=== PATIENT | male | born 1955 | race Caucasian/White ===

== ENCOUNTER 2019-04-03 09:15 | Emergency (ER) | payer MEDICARE, MEDICAID ==
[~2019-04-03] VITALS: Ht 175.3 cm; Wt 68.0 kg
[2019-04-03] MEDS ORDERED: HYDROCHLOROTHIA25 M2 PO (09:50)
[2019-04-03] MEDS ORDERED: NORVASC 2.5 MG2.5 M1 PO (09:50)
[2019-04-03 10:13] LABS: ABSOLUTE BASOPHILS 0.1 thou/uL (0.0-0.2); ABSOLUTE EOSINOPHILS 0.3 thou/uL (0.0-0.7); ABSOLUTE LYMPHOCYTES 0.8 thou/uL (0.8-5.3); ABSOLUTE MONOCYTES 0.4 thou/uL (0.0-1.2); ABSOLUTE NEUTROPHILS 3.3 thou/uL (1.6-8.1); BASOPHILS 1.5 %; HEMATOCRIT 27.5 % (42.0-52.0); HEMOGLOBIN 9.4 gm/dL (14.0-18.0); LYMPHOCYTES 15.5 %; MCH 32.1 pg (26.0-34.0); MCHC 34.3 g/dL (28.0-37.0); MCV 93.6 fL (80.0-100.0); MONOCYTES 8.7 %; MPV 7.5 fl. (7.2-11.1); NUCLEATED RBCS 0 /100WBC; PLATELET COUNT* 147 thou/uL (150-400); POLYS 67.3 %; RBC 2.94 mil/uL (4.50-6.00); RDW-CV 15.5 % (10.5-14.5); WBC 4.9 thou/uL (4.0-11.0)
[2019-04-03 10:26] LABS: POTASSIUM 4.2 mmol/L (3.5-5.1)
[2019-04-03 10:32] LABS: ALBUMIN 3.5 g/dL (3.4-5.0); TOTAL BILIRUBIN 0.6 mg/dL (<0.1-1.0); TOTAL PROTEIN 7.1 g/dL (6.4-8.2)
[2019-04-03 11:47] VITALS: BP 158/87
== END 2019-04-03 11:48 | disposition home or self-care (01) ==
LOC: M.ERS 09:15
PROVIDERS: Family Medicine
DX: N43.3 Hydrocele, unspecified (principal); I10 Essential (primary) hypertension; K64.9 Unspecified hemorrhoids; F17.210 Nicotine dependence, cigarettes, uncomplicated; Z99.2 Dependence on renal dialysis

== ENCOUNTER 2020-01-09 14:06 | Observation (INO) | payer MEDICARE, MEDICAID ==
[~2020-01-09] VITALS: Ht 167.6 cm; Wt 66.7 kg
[~2020-01-09 14:06] MED LIST: HYDROCHLOROTHIA25 M2 PO; NORVASC 2.5 MG2.5 M1 PO
[2020-01-09 14:07] VITALS: BP 195/119
[2020-01-09] MEDS ORDERED: TERAZOSIN HCL5 MG PO (14:12)
[2020-01-09 14:56] LABS: ABSOLUTE BASOPHILS 0.1 thou/uL (0.0-0.2); ABSOLUTE EOSINOPHILS 0.2 thou/uL (0.0-0.7); ABSOLUTE LYMPHOCYTES 1.2 thou/uL (0.8-5.3); ABSOLUTE MONOCYTES 0.4 thou/uL (0.0-1.2); ABSOLUTE NEUTROPHILS 3.5 thou/uL (1.6-8.1); BASOPHILS 1.2 %; EOSINOPHILS 2.9 %; HEMATOCRIT 34.8 % (42.0-52.0); HEMOGLOBIN 12.1 gm/dL (14.0-18.0); LYMPHOCYTES 23.4 %; MCHC 34.8 g/dL (28.0-37.0); MCV 92.1 fL (80.0-100.0); MONOCYTES 6.8 %; MPV 7.8 fl. (7.2-11.1); NUCLEATED RBCS 0 /100WBC; PLATELET COUNT* 160 thou/uL (150-400); POLYS 65.7 %; RBC 3.78 mil/uL (4.50-6.00); RDW-CV 14.7 % (10.5-14.5); WBC 5.3 thou/uL (4.0-11.0)
[2020-01-09 15:04] LABS: PROTIME 10.5 Seconds (9.20-11.50)
[2020-01-09 15:07] LABS: ANION GAP 8 mmol/L (7-16); BUN 18 mg/dL (7-18); CALCIUM 8.6 mg/dL (8.5-10.1); CHLORIDE 99 mmol/L (98-107); CO2 31 mmol/L (21-32); CREATININE 4.1 mg/dL (0.6-1.3); GLUCOSE 81 mg/dL (70-99); POTASSIUM 3.6 mmol/L (3.5-5.1); SODIUM 138 mmol/L (136-145)
[2020-01-09 15:20] LABS: ALBUMIN 3.5 g/dL (3.4-5.0); ALKALINE PHOSPHATASE 142 U/L (46-116); LIPASE 139 U/L (73-393); NT-PRO BRAIN NAT PEPTIDE > 35000 pg/mL (<300); SGOT 13 U/L (15-37); SGPT 16 U/L (30-65); TOTAL BILIRUBIN 0.6 mg/dL (<0.1-1.0); TOTAL PROTEIN 7.4 g/dL (6.4-8.2)
--- NOTE | 2020-01-09 19:04 | EKG ---
[place] [address] ELECTROCARDIOGRAM REPORT Name: CASSY JEAN [address] [id number] Admission: 01/09/20 Attend Phys: Radha Arroyo, Discharge: Date of : 57 Date of Service: 01/09/20 1409 Report #: [id number] THIS REPORT FOR: //name// [facility] ED Test Date: 2020-01-09 Test Time: 14:09:38 Pat Name: CASSY JEAN Department: Room: [facility] Gender: M [employer] Clerk: CORWIN : 1955 Requested By: Sintia Owusu Order Number: [id number] MD: Melquiades Barrientos Measurements Intervals [place] Rate: 141 P: -45 RI: 63 QRS: -43 QRSD: 92 T: 67 QT: 339 QTc: 519 Interpretive Statements Sinus or ectopic atrial tachycardia LVH with secondary repolarization abnormality Inferior infarct, old Prolonged QT interval Baseline wander in lead(s) V5 No previous ECG available for comparison Electronically Signed On 01-09-2020 19:03:52 CDT by Melquiades Barrientos [email or web address] <ELECTRONICALLY SIGNED> By: Melquiades Barrientos MD, FACC 01/09/20 1903 1409 1409 Melquiades Barrientos MD, FACC /EPI
[2020-01-09 20:01] VITALS: BP 150/71
[2020-01-09 21:00] VITALS: BP 189/108
[2020-01-10] VITALS (12 sets, daily range): BP systolic 150–179; BP diastolic 85–96
[2020-01-10 05:35] LABS: HEMATOCRIT 33.5 % (42.0-52.0); HEMOGLOBIN 11.8 gm/dL (14.0-18.0); MCH 32.6 pg (26.0-34.0); MCHC 35.1 g/dL (28.0-37.0); MCV 92.6 fL (80.0-100.0); MPV 8.1 fl. (7.2-11.1); RBC 3.61 mil/uL (4.50-6.00); RDW-CV 14.4 % (10.5-14.5); WBC 4.8 thou/uL (4.0-11.0)
[2020-01-10] MEDS ORDERED: HYDRALAZINE 2525 MG PO (06:22)
[2020-01-10 06:39] LABS: CALCIUM 8.3 mg/dL (8.5-10.1); POTASSIUM 4.3 mmol/L (3.5-5.1); TROPONIN-I LEVEL 0.1 ng/mL (<0.06)
[2020-01-10 06:42] LABS: CREATININE 5.9 mg/dL (0.6-1.3)
[2020-01-10 09:19] LABS: CHOLESTEROL 129 mg/dL (<200); HDL CHOLESTEROL 51 mg/dL (>40); LDL CHOLESTEROL 63 mg/dL (<100); SERUM ASSESSMENT Clear; TC:HDL 2.5 Ratio (Not establshd); TRIGLYCERIDE 79 mg/dL (<150); VLDL 16 mg/dL (<40)
--- NOTE | 2020-01-10 14:12 | 2DMMODE ---
[place] [address] 2 D/M-MODE ECHOCARDIOGRAM Name: CASSY JEAN Room: [address] Nelly#: [id number] Admission: 01/09/20 Attend Phys: Radha Arroyo, Discharge: Date of : 57 Date of Service: 01/10/20 1411 Report #: [id number] THIS REPORT FOR: cc: FAM - No family physician/PCP FAM - No family physician/PCP Melquiades Barrientos MD [facility] ~ APPROVED REPORT Study performed: 01/10/2020 09:58:28 EXAM: Comprehensive 2D, Doppler, and color-flow Echocardiogram Patient Location: In-Patient Room #: [facility] Status: routine BSA: 1.75 HR: 65 bpm BP: 167/93 mmHg Rhythm: NSR Other Information Study Quality: Good Indications Elevated Troponin Chest Pain 2D Dimensions IVSd: 13.61 (7-11mm) LVOT Diam: 20.68 (18-24mm) LVDd: 58.55 mm PWd: 12.81 (7-11mm) LVDs: 43.35 (25-40mm) Aortic Root: 34.60 mm Volumes Left Atrial Volume (Systole) LA ESV Index: 49.70 mL/m2 Aortic Valve AoV Peak Suraj.: 1.94 m/s AO Peak Gr.: 15.11 mmHg LVOT Max P.29 mmHg AO Mean Gr.: 8.91 mmHg LVOT Mean P.12 mmHg LVOT Max V: 1.44 m/s AO V2 VTI: 39.68 cm LVOT Mean V: 0.93 m/s KRYSTLE (VTI): 2.35 cm2 LVOT V1 VTI: 27.81 [place] [address] 2 D/M-MODE ECHOCARDIOGRAM Name: CASSY JEAN Room: [address] MAdolfoRAdolfo#: [id number] Admission: 01/09/20 Attend Phys: Radha Arroyo, Discharge: Date of : 57 Date of Service: 01/10/20 1411 Report #: [id number] Mitral Valve MV Mean Gr.: 3.47 mmHg E/A Ratio: 0.74 MV Decel. Time: 351.83 ms MV E Max Suraj.: 1.00 m/s MV PHT: 102.03 ms MVA (PHT): 2.16 cm2 TDI E/Lateral E': 12.50 E/Medial E': 20.00 Medial E' Suraj.: 0.05 m/s Lateral E' Suraj.: 0.08 m/s Pulmonary Valve PV Peak Suraj.: 1.15 m/s PV Peak Gr.: 5.28 mmHg Left Ventricle The left ventricle is normal size. There is normal LV segmental wall motion. Mild concentric left ventricular hypertrophy. Left ventricular systolic function is normal. LVEF is 55-60%. Grade I - abnormal relaxation pattern. Right Ventricle The right ventricle is normal size. The right ventricular systolic function is normal. Atria Left atrium is mildly dilated. Right atrium is mildly dilated. Aortic Valve Mild aortic valve sclerosis. No aortic regurgitation is present. There is no aortic valvular stenosis. Mitral Valve There is mitral annular calcification. Mild mitral regurgitation. Mild mitral stenosis. Tricuspid Valve The tricuspid valve is normal in structure. There is no tricuspid valve regurgitation noted. Pulmonic Valve The pulmonary valve is normal in structure. There is no pulmonic [place] [address] 2 D/M-MODE ECHOCARDIOGRAM Name: CASSY JEAN Room: [address] Nelly#: [id number] Admission: 01/09/20 Attend Phys: Radha Arroyo, Discharge: Date of : 57 Date of Service: 01/10/20 1411 Report #: [id number] Great Vessels The aortic root is normal in size. IVC is normal in size and collapses >50% with inspiration. Pericardium There is no pericardial effusion. <Conclusion> The left ventricle is normal size. Mild concentric left ventricular hypertrophy. Left ventricular systolic function is normal. LVEF is 55-60%. Grade I - abnormal relaxation pattern. Left atrium is mildly dilated. Right atrium is mildly dilated. Mild mitral regurgitation. IVC is normal in size and collapses >50% with inspiration. <ELECTRONICALLY SIGNED> By: Melquiades Barrientos MD, FACC 01/10/20 141 141 141 Melquiades Barrientos MD, FACC /INF
--- NOTE | 2020-01-11 15:38 | CON ---
[address] [address] CONSULTATION Name: CASSY JEAN Room: [address] Nelly#: [id number] Admission: 01/09/20 Attend Phys: Radha Arroyo MD Discharge: 01/10/20 Date of : 57 Report #: [id number] THIS REPORT FOR: //name// cc: ROXI Chase family physician/PCP ROXI - No family physician/PCP ~ THIS REPORT FOR: //name// CC: ROXI physician/PCP Radha Arroyo DATE OF SERVICE: 01/10/2020 NEPHROLOGY CONSULTATION CONSULTING PHYSICIAN: Radha Arroyo MD REASON FOR ADMISSION: Chest pain after dialysis. REASON FOR NEPHROLOGY CONSULTATION: ESRD, for maintenance hemodialysis. HISTORY OF PRESENT ILLNESS: This is a 64-year-old male with past medical history of ESRD, on hemodialysis every Tuesday, Tuesday, Tuesday; started having chest pain 2 hours after his dialysis yesterday, his troponin was elevated, but it has been staying stable. He will be due for dialysis again tomorrow, cardiology evaluated him this morning and they are recommending coronary angiogram. He is not having any chest pain this morning. He does not make any urine. ALLERGIES: No known drug allergies. REVIEW OF SYSTEMS: As mentioned in history of present illness, otherwise 10-point review of systems done, negative. PAST MEDICAL AND SURGICAL HISTORY: Which includes history of ESRD, on hemodialysis every Tuesday, Tuesday, and Tuesday. He has an AV fistula in left arm, hemorrhoids, hypertension. HOME MEDICATIONS: Include amlodipine and terazosin. FAMILY HISTORY: Noncontributory in this current situation was reviewed. SOCIAL HISTORY: Uses marijuana, has used in the last 3 months. Smokes every day and does not use alcohol. PHYSICAL EXAMINATION: VITAL SIGNS: Blood pressure 167/93, respiratory rate is 14, pulse rate is 80, [place] [address] CONSULTATION Name: CASSY JEAN Room: [address]#: [id number] Admission: 01/09/20 Attend Phys: Radha Arroyo MD Discharge: 01/10/20 Date of : 57 Report #: [id number] temperature 36.7, pulse ox 97% and he was on room air. GENERAL: He is awake, alert, oriented x 3. HEAD AND EYES: Atraumatic, normocephalic. Normal conjunctivae. EARS, NOSE, AND THROAT: Normal ears and nose. Mucous membranes are moist. NECK: No JVD. CHEST: Bilaterally clear to auscultation. No crackles or wheezing. CARDIOVASCULAR: S1, S2 normal. No murmurs or rubs. ABDOMEN: Soft, nondistended, nontender. Bowel sounds are present. EXTREMITIES: Lower extremities, no lower extremity edema. Left arm radiocephalic fistula, good bruit and thrill. NEUROLOGICAL FUNCTION: Grossly intact. PSYCHIATRIC: Mood and affect seems to be normal. LABORATORY DATA: His hemoglobin is 11.8. His potassium is 4.3 and other labs were reviewed. IMAGING: Chest x-ray was reviewed. ASSESSMENT: 1. End-stage renal disease, on hemodialysis every Tuesday, Tuesday and Tuesday, had his dialysis yesterday, Tuesday. 2. History of hyperlipidemia. 3. The patient presented with chest pain, concerning for unstable angina. Cardiology is recommending coronary angiogram for him. 4. History of hypertension, controlled. PLAN: 1. He will be dialyzed tomorrow if he stays in the hospital. 2. Noted plans for cardiac catheterization as per Cardiology. 3. Hemoglobin currently above goal 11.8. Thank you for the consultation. We will continue to follow for dialysis needs. Discussed with the patient and the patient's nurse. <ELECTRONICALLY SIGNED> By: Marguerite Dee MD 01/11/20 1538 0943 1024Marguerite Dee MD /nt
--- NOTE | 2020-01-12 14:00 | CARD ---
[address] [address] CARDIAC CATH REPORT Name: CASSY JEAN Room: [address]RAdolfo#: [id number] Admission: 01/09/20 Attend Phys: Radha Arroyo MD Discharge: 01/10/20 Date of : 57 Report #: [id number] THIS REPORT FOR: //name// cc: ROXI Chase family physician/PCP ROXI Chase family physician/PCP ~ APPROVED REPORT Study performed: 01/10/2020 10:08:28 Patient Details Patient Status: In-Patient Room #: The patient is a 64 year-old male Event Personnel Melquiades Barrientos Visual Inspector, Daniel Lindsay RN RN, Shayla Ibrahim RTR Byron Benjamin Brad RCIS Monitor Procedure Narrative A 6F Sheath sheath was inserted into the RFA. Coronary angiography was performed using coronary diagnostic catheters. The right coronary system was accessed and visualized with a JR4 catheter. The left coronary system was accessed and visualized with a JL4 catheter. The left ventricle was accessed and visualized with a PIG catheter. The patient tolerated the procedure well and there were no complications associated with the procedure. Intraoperative Conscious Sedation Sedation start time: 1130 Case end Time: 1140 Fluoro Time: 4.0 minutes Dose: DAP 78696 cGycm2 649 mGy Contrast Type and Amount: Visipaque 90 ml Coronary Angiography The patient's coronary anatomy is left dominant. Diagnostic Cath Left Main The left main coronary artery is short and normal. The left main trifurcates into a left anterior descending, intermediate ramus and circumflex coronary artery. LAD The left anterior descending has minimal 10% plaquing proximally. The mid and distal vessel appears normal. Diagonal 1 A small first diagonal branch has mild plaquing proximally. Diagonal 2 A second [place] [address] CARDIAC CATH REPORT Name: CASSY JAEN Room: [address]#: [id number] Admission: 01/09/20 Attend Phys: Radha Arroyo MD Discharge: 01/10/20 Date of : 57 Report #: [id number] OM1 A first obtuse marginal branch has minimal 10% plaquing proximally. OM2 A second obtuse marginal branch has minimal 10% plaquing proximally. OM3 A small third obtuse marginal branch is normal. L PDA The circumflex PDA appears normal. Right Coronary A small nondominant right coronary artery appears normal. Ramus And intermediate ramus with marginal distribution appears normal. Left Ventriculography Left Ventriculography was not performed. Hemodynamics The aortic pressure is 169/76 mmHg with a mean of 74 mmHg. The left ventricular pressure is 161/2 mmHg with a mean of mmHg. The left ventricular end diastolic pressure is 11 mmHg. Conclusion 1. Minimal coronary artery plaquing without hemodynamically significant stenoses. 2. Normal left ventricular end-diastolic pressure. Recommendations 1. Continue aggressive risk factor modification and medical management. <ELECTRONICALLY SIGNED> By: Melquiades Barrientos MD, FACC 01/12/20 1400 1400 1400Micmalia Barrientos MD, FACC /INF
== END 2020-01-10 17:20 | disposition home or self-care (01) ==
LOC: M.ERS 14:06 → M.TBA-ER 17:47 → M.2W 17:47
PROVIDERS: Personal Emergency Response Attendant; Registered Nurse; ADMIT Internal Medicine; ATTEND Internal Medicine
DX: R07.89 Other chest pain (principal); R79.89 Other specified abnormal findings of blood chemistry; I12.0 Hypertensive chronic kidney disease with stage 5 chronic kidney disease or end stage renal disease; N18.6 End stage renal disease; F17.210 Nicotine dependence, cigarettes, uncomplicated; Z79.82 Long term (current) use of aspirin; Z99.2 Dependence on renal dialysis; Z79.899 Other long term (current) drug therapy; Z20.818 Contact with and (suspected) exposure to other bacterial communicable diseases